=== PATIENT | male | born 1975 | race Native Hawaiian/Other Pacific Islander ===

== ENCOUNTER 2020-05-25 12:01 | Inpatient (IN) | payer SELFPAY ==
--- NOTE | 2020-05-25 12:19 | Emergency Department Report ---
Blank Doc - Documentation Documentation: 44-year-old male presents emerged department complaining of a 1 week history of shortness of breath and cough and progressively worsening symptoms since since the onset On examination increased work of breathing mild heart rate 140s satting 89% on room air at rest This initial assessment/diagnostic orders/clinical plan/treatment(s) is/are subject to change based on patients health status, clinical progression and re- assessment by fellow clinical providers in the ED. Further treatment and workup at subsequent clinical providers discretion. Patient/guardian urged not to elope from the ED as their condition may be serious if not clinically assessed and managed. Initial orders include: Covid, shortness of breath evaluation
[2020-05-25] MEDS ORDERED: SODIUM CHLORIDE 0.9% 1000 ML IV SOLN IV ONE (12:24)
--- NOTE | 2020-05-25 12:27 | Emergency Department Report ---
ED General Adult HPI - General Chief complaint: Dyspnea/Respdistress Stated complaint: + COVID REF BY DR. BANDA Time Seen by Provider: 05/25/20 12:27 Source: patient Mode of arrival: Ambulatory Limitations: No Limitations - History of Present Illness Initial comments: Patient is a 44-year-old diabetic male presents emergency department with shortness of breath associated with 2 to 3 days of nonproductive cough. Patient denies fever, denies sore throat, denies chest pain. Patient's tested positive for coronavirus 3 weeks ago, patient himself has not been tested. Sent from PMD for evaluation of tachycardia and hypoxia (89% RA) ED Review of Systems ROS: Stated complaint: + COVID REF BY DR. BANDA Other details as noted in HPI Comment: All other systems reviewed and negative ED Past Medical Hx - Past Medical History Previous Medical History?: Yes Hx Diabetes: Yes - Social History Smoking Status: Never Smoker Substance Use Type: None ED Physical Exam - General Limitations: No Limitations General appearance: alert, in no apparent distress - Head Head exam: Present: atraumatic, normocephalic - Eye Eye exam: Present: normal appearance - ENT ENT exam: Present: mucous membranes moist - Neck Neck exam: Present: normal inspection - Respiratory Respiratory exam: Present: respiratory distress, rhonchi - Cardiovascular Cardiovascular Exam: Present: normal rhythm, tachycardia - GI/Abdominal GI/Abdominal exam: Present: soft, normal bowel sounds - Rectal Rectal exam: Present: deferred - Extremities Exam Extremities exam: Present: normal inspection - Back Exam Back exam: Present: normal inspection - Neurological Exam Neurological exam: Present: alert, oriented X3 - Psychiatric Psychiatric exam: Present: normal affect, normal mood - Skin Skin exam: Present: warm, dry, intact, normal color. Absent: rash ED Course Vital Signs 05/25/20 05/25/20 05/25/20 12:42 12:58 13:07 Temperature 98.7 F Pulse Rate 120 H 122 H Respiratory 17 22 22 Rate Blood Pressure 127/84 [Left] O2 Sat by Pulse 93 91 Oximetry - Reevaluation(s) Reevaluation #1: 05/25/20 14:07 Patient treated with IV normal saline, IV Decadron, IV azithromycin, IV Rocephin. Patient treated with O2 nasal cannula for hypoxia 89% on room air. ED Medical Decision Making - Lab Data Result diagrams: 05/25/20 12:39 05/25/20 12:39 Labs 05/25/20 05/25/20 05/25/20 12:39 12:39 12:39 WBC 9.3 RBC 4.75 Hgb 14.9 Hct 42.5 MCV 89 MCH 31 MCHC 35 H RDW 12.6 L Plt Count 606 H Lymph % (Auto) 15.1 [place] % (Auto) 6.4 Eos % (Auto) 0.3 Baso % (Auto) 0.3 Lymph # (Auto) 1.4 [place] # (Auto) 0.6 Eos # (Auto) 0.0 Baso # (Auto) 0.0 Seg Neutrophils % 77.9 H Seg Neutrophils # 7.2 D-Dimer 230.82 Sodium 133 L Potassium 4.0 Chloride 97.8 L Carbon Dioxide 24 Anion Gap 15 BUN 10 Creatinine 0.5 L Estimated GFR > 60 BUN/Creatinine Ratio 20 Glucose 234 H Lactic Acid Calcium 9.3 Ferritin Total Bilirubin 0.30 AST 49 H ALT 52 Alkaline Phosphatase 115 Lactate Dehydrogenase C-Reactive Protein Total Protein 8.0 Albumin 3.6 L Albumin/Globulin Ratio 0.8 05/25/20 05/25/20 05/25/20 12:39 12:39 12:39 WBC RBC Hgb Hct MCV MCH MCHC RDW Plt Count Lymph % (Auto) [place] % (Auto) Eos % (Auto) Baso % (Auto) Lymph # (Auto) [place] # (Auto) Eos # (Auto) Baso # (Auto) Seg Neutrophils % Seg Neutrophils # D-Dimer Sodium Potassium Chloride Carbon Dioxide Anion Gap BUN Creatinine Estimated GFR BUN/Creatinine Ratio Glucose Lactic Acid 1.50 Calcium Ferritin 807.1 H Total Bilirubin AST ALT Alkaline Phosphatase Lactate Dehydrogenase 202 H C-Reactive Protein 4.20 H Total Protein Albumin Albumin/Globulin Ratio Vital Signs 05/25/20 05/25/20 05/25/20 12:42 12:58 13:07 Temperature 98.7 F Pulse Rate 120 H 122 H Respiratory 17 22 22 Rate Blood Pressure 127/84 [Left] O2 Sat by Pulse 93 91 Oximetry - EKG Data -: EKG Interpreted by Me (Sinus rhythm at 101, no ST-T changes, normal QRS) - Radiology Data Radiology results: report reviewed (CXR negative per radiology) Critical care attestation.: If time is entered above; I have spent that time in minutes in the direct care of this critically ill patient, excluding procedure time. ED Disposition Clinical Impression: Person under investigation for COVID-19, Hypoxia Disposition: DC OP ADMIT IP TO THIS HOSP Is pt being admited?: Yes Condition: Stable Referrals: PRIMARY CARE, [Primary Care Provider] - 3-5 Days
[2020-05-25 13:21] LABS: Basophils % (Auto) 0.3 % (0.0-1.8); Eosinophils % (Auto) 0.3 % (0.0-4.3); Hematocrit 42.5 % (35.5-45.6); Hemoglobin 14.9 gm/dl (11.8-15.2); Lymphocytes # (Auto) 1.4 K/mm3 (1.2-5.4); Lymphocytes % (Auto) 15.1 % (13.4-35.0); Mean Corpuscular HGB Conc 35 % (32-34); Mean Corpuscular Volume 89 fl (84-94); Monocytes # (Auto) 0.6 K/mm3 (0.0-0.8); Monocytes % (Auto) 6.4 % (0.0-7.3); Platelet Count 606 K/mm3 (140-440); Red Blood Count 4.75 M/mm3 (3.65-5.03); Red Cell Distribution Width 12.6 % (13.2-15.2)
[2020-05-25] MEDS ORDERED: AZITHROMYCIN/NS 500 MG/250 ML 500 MG/250 ML BAG IV ONE (13:32)
[2020-05-25] MEDS ORDERED: cefTRIAXone/NS 1 GM/50 ML 1 GM/50 ML BAG IV ONE (13:32)
[2020-05-25] MEDS ORDERED: SODIUM CHLORIDE 0.9% 500 ML 500 ML IV ONE (13:32)
[2020-05-25] MEDS ORDERED: dexAMETHasone 20 MG/5 ML VIAL IV ONE (13:32)
--- NOTE | 2020-05-25 13:36 | XRay Report ---
CHEST 1 VIEW INDICATION: cough, hypoxia, sob. COMPARISON: None FINDINGS: Support devices: None. Heart: Within normal limits. Lungs/Pleura: No acute air space or interstitial disease. Focal scarring or atelectasis in the lingul a is noted. No pleural effusion or pneumothorax. Additional findings: None. IMPRESSION: No acute findings. Signer Name: Rex Morales Jr, MD Signed: 05/25/2020 1:31 PM Workstation Name: [id number]
[2020-05-25 13:40] LABS: Alanine Aminotransferase 52 units/L (7-56); Albumin 3.6 g/dL (3.9-5); BUN/Creatinine Ratio 20; Blood Urea Nitrogen 10 mg/dL (9-20); Calcium 9.3 mg/dL (8.4-10.2); Hemolysis Index 0
[2020-05-25 13:41] LABS: C-Reactive Protein 4.2 mg/dL (0.00-1.30)
--- NOTE | 2020-05-25 14:07 | History and Physical Report ---
History of Present Illness Chief complaint: It is hard to breathe History of present illness: 44 YO Male with DM presents to ED for evaluation. Patient reports "it is hard for me to breathe". Patient states that he has experienced shortness of breath, dry cough, fatigue, decreased exercise tolerance, malaise, body aches, sore throat over the past 3 days with persistent symptoms over the same timeframe. Patient was seen and evaluated by his primary care physician and was found to have a pulse oximetry of 89% on room air. Patient transported to [facility] via private vehicle for further care and evaluation of the aforementioned symptoms. The patient was seen and evaluated in the emergency department. All lab and imaging studies reviewed. Patient found to have a pulse oximetry of 86% with exertion which is consistent with acute hypoxemic respiratory failure. Patient initiated on submental oxygen via nasal cannula with improvement in symptoms. Patient found to have chest x-ray consistent with pneumonia. Patient admitted to medical floor and initiated on coronavirus protocol as well as pneumonia protocol. Patient denies fever, chills, chest pain, palpitations, skin rash, recent ill contacts. Patient acknowledges known exposure to coronavirus infection. Patient was found to have coronavirus infection 3 weeks ago. No prior admission for review. No medication listed at time of admission for reconciliation. Past History Past Medical History: diabetes Past Surgical History: No surgical history, Other (Reviewed) Social history: , lives with family Family history: diabetes, hypertension Medications and Allergies Allergies Allergy/AdvReac Type Severity Reaction Status Date / Time No Known Allergies Allergy Unverified 05/25/20 14:38 Active Meds: Active Medications Azithromycin (Zithromax/Ns) 500 mg in 250 mls @ 250 mls/hr IV ONCE ONE; Protocol Stop: 05/25/20 14:31 Review of Systems Constitutional: fatigue, weakness, malaise, no fever, no chills, no sweats Ears, nose, mouth and throat: no ear pain, no ear discharge, no decreased hearing, no nose pain, no nasal congestion Cardiovascular: no chest pain, no orthopnea, no rapid/irregular heart beat, no edema, no syncope Respiratory: cough, cough with sputum, shortness of breath, no hemoptysis, no dyspnea on exertion Gastrointestinal: no nausea, no vomiting, no diarrhea, no constipation Genitourinary Male: no hematuria, no flank pain, no discharge, no urinary freq uency, no urinary hesitancy Rectal: no pain, no incontinence, no bleeding Musculoskeletal: no neck stiffness, no neck pain, no shooting arm pain, no arm numbness/tingling, no low back pain Integumentary: no rash, no pruritis, no redness, no sores, no wounds Neurological: no head injury, no transient paralysis, no parathesias, no numbness, no seizures, no syncope Psychiatric: no anxiety, no change in sleep habits, no sleep disturbances, no hypersomnia, no suicidal ideation Endocrine: no cold intolerance, no heat intolerance, no excessive thirst, no polydipsia, no nocturia, no excessive sweating Hematologic/Lymphatic: no easy bruising Allergic/Immunologic: no urticaria, no allergic rhinitis, no wheezing Exam - Constitutional Vitals: Temp Pulse Resp BP Pulse Ox 98.7 F 122 H 22 127/84 91 05/25/20 12:58 05/25/20 12:58 05/25/20 13:07 05/25/20 12:58 05/25/20 12:58 General appearance: Present: mild distress - EENT Eyes: Present: PERRL ENT: hearing intact, clear oral mucosa - Neck Neck: Present: supple, normal ROM - Respiratory Respiratory effort: normal Respiratory: bilateral: CTA - Cardiovascular Heart Sounds: Present: S1 & S2. Absent: rub, click - Extremities Extremities: pulses symmetrical, No edema Peripheral Pulses: within normal limits - Abdominal General gastrointestinal: Present: soft, non-tender, non-distended, normal bowel sounds Male genitourinary: Present: normal - Integumentary Integumentary: Present: clear, warm, dry - Musculoskeletal Musculoskeletal: gait normal, strength equal bilaterally - Psychiatric Psychiatric: appropriate mood/affect, intact judgment & insight - Neurologic Neurologic: CNII-XII intact, moves all extremities Results - Labs CBC & Chem 7: 05/25/20 12:39 05/25/20 12:39 Labs: Abnormal lab results 05/25/20 05/25/20 05/25/20 Range/Units 12:39 12:39 12:39 MCHC 35 H (32-34) % RDW 12.6 L (13.2-15.2) % Plt Count 606 H (140-440) K/mm3 Seg Neutrophils % 77.9 H (40.0-70.0) % Sodium 133 L (137-145) mmol/L Chloride 97.8 L (98-107) mmol/L Creatinine 0.5 L (0.8-1.3) mg/dL Glucose 234 H (75-100) mg/dL Ferritin (30.0-300.0) ng/mL AST 49 H (5-40) units/L Lactate Dehydrogenase 202 H (91-180) units/L C-Reactive Protein 4.20 H (0.00-1.30) mg/dL Albumin 3.6 L (3.9-5) g/dL 05/25/20 Range/Units 12:39 MCHC (32-34) % RDW (13.2-15.2) % Plt Count (140-440) K/mm3 Seg Neutrophils % (40.0-70.0) % Sodium (137-145) mmol/L Chloride (98-107) mmol/L Creatinine (0.8-1.3) mg/dL Glucose (75-100) mg/dL Ferritin 807.1 H (30.0-300.0) ng/mL AST (5-40) units/L Lactate Dehydrogenase (91-180) units/L C-Reactive Protein (0.00-1.30) mg/dL Albumin (3.9-5) g/dL Assessment and Plan - Patient Problems (1) Acute hypoxemic respiratory failure Current Visit: Yes Status: Acute Plan to address problem: Chest x-ray, supplemental oxygen, pulse oximetry, nebulizer therapy, pulmonary toilet. If patient is unable to maintain pulse oximetry on submental oxygen the patient will be transition to high flow submental oxygen. (2) Pneumonia Current Visit: Yes Status: Acute Plan to address problem: Pneumonia protocol: Chest x-ray, CBC, CMP, supplemental oxygen, pulse oximetry, IV antibiotic therapy, blood culture. (3) Suspected 2019 novel coronavirus infection Current Visit: Yes Status: Acute Plan to address problem: Coronavirus protocol: Contact precautions, isolation precautions, IV antibiotic therapy, IV steroid therapy, vitamin D3, zinc, vitamin C, supportive care, prone positioning while in bed. (4) Diabetes Current Visit: Yes Status: Acute Plan to address problem: Consistent carbohydrate diet, sliding scale insulin, Accu-Chek, hypoglycemia protocol. (5) DVT prophylaxis Current Visit: Yes Status: Acute Plan to address problem: SCD to bilateral lower extremities while in bed, prophylactic anticoagulation.
[2020-05-25] MEDS ORDERED: ALBUTEROL 2.5 MG/3 ML NEBU IH PRN (14:10)
[2020-05-25] MEDS ORDERED: ONDANSETRON 4 MG/2 ML INJ IV PRN (14:10)
[2020-05-25] MEDS ORDERED: ACETAMINOPHEN 325 MG TAB PO PRN (14:10)
[2020-05-25 15:54] LABS: Bilirubin,Urine NEG (Negative); Blood,Urine NEG (Negative); Color,Urine Yellow (Yellow); Hyaline Casts,Urine 1 /LPF; Mucus,Urine FEW /HPF; RBC,Urine < 1.0 /HPF (0.0-6.0); Urobilinogen,Urine < 2.0 mg/dL (<2.0)
[2020-05-25] MEDS: methylPREDNISolone Sod Succinate 40 MG/1 ML INJ IV SCH (22:51)
[2020-05-25] MEDS: ZINC SULFATE 220 MG CAP PO SCH (22:51)
[2020-05-25] MEDS: ASCORBIC ACID 500 MG TAB PO SCH (22:51)
[2020-05-25] MEDS: HEPARIN 5,000 UNIT/1 ML VIAL SUB-Q SCH (22:51)
[2020-05-26 05:08] LABS: Basophils % (Auto) 0.3 % (0.0-1.8); Hematocrit 43.6 % (35.5-45.6); Lymphocytes # (Auto) 0.7 K/mm3 (1.2-5.4); Lymphocytes % (Auto) 13.1 % (13.4-35.0); Mean Corpuscular HGB Conc 34 % (32-34); Mean Corpuscular Volume 90 fl (84-94); Monocytes # (Auto) 0.1 K/mm3 (0.0-0.8); Monocytes % (Auto) 2.3 % (0.0-7.3); Platelet Count 582 K/mm3 (140-440); Red Blood Count 4.87 M/mm3 (3.65-5.03); Red Cell Distribution Width 12.6 % (13.2-15.2)
[2020-05-26 05:09] LABS: Blood Urea Nitrogen 12 mg/dL (9-20); Calcium 9.1 mg/dL (8.4-10.2); Hemolysis Index 4
[2020-05-26 05:14] LABS: BUN/Creatinine Ratio 20
[2020-05-26] MEDS: methylPREDNISolone Sod Succinate 40 MG/1 ML INJ IV SCH (06:08)
[2020-05-26] MEDS ORDERED: AZITHROMYCIN 250 MG TAB PO SCH (10:00)
--- NOTE | 2020-05-26 10:35 | Progress Note ---
Assessment and Plan Assessment and plan: 44-year-old male with a history of diabetes presented to the hospital with chief complaint of difficulty breathing. He also notes dry cough, fatigue, decreased exercise tolerance, malaise, body aches and sore throat for about 3 days prior to presentation. He was seen by his primary medical doctor and was noted to have hypoxia. He was then sent to the hospital for further evaluation. In the ER, he was found to have acute hypoxic respiratory failure was admitted for evaluation. Chest x-ray showed no acute findings. COVID-19 test ordered. He mentioned that his spouse had coronavirus infection about 3 weeks ago. 05/26. Remains on oxygen supplementation. Awaiting COVID-19 test. Continue IV a ntibiotics dexamethasone Plan ---Acute hypoxic respiratory failure Continue oxygen supplementation COVID-19 test pending. Continue IV antibiotics Dexamethasone 6mg daily Diabetes mellitus Insulin regimen Monitor blood glucose closely DVT prophylaxis-Lovenox History Interval history: No fresh complaints Hospitalist Physical - Physical exam Narrative exam: VITAL SIGNS: Reviewed. GENERAL: Awake HEAD: No signs of head trauma. EYES: Pupils are equal. Extraocular motions intact. MOUTH: Oropharynx is normal. NECK: No adenopathy, no JVD. CHEST: Chest with diminished breath sounds bilaterally. No wheezes, rales, or rhonchi. CARDIAC: normal S1 and S2, without murmurs, gallops, or rubs. ABDOMEN: Soft, non tender and non distended. No rebound or guarding, and no masses palpated. Bowel Sounds normal. MUSCULOSKELETAL: No edema NEUROLOGIC EXAM: Alert and oriented x3. No focal neurologic deficits SKIN: No obvious lesions - Constitutional Vitals: Temp Pulse Resp BP Pulse Ox 97.8 F 87 16 112/73 93 05/26/20 05:21 05/26/20 05:21 05/26/20 05:21 05/26/20 05:21 05/26/20 05:21 Results - Labs CBC & Chem 7: 05/26/20 04:16 05/26/20 04:16 Labs: Laboratory Last Values WBC 5.2 K/mm3 (4.5-11.0) 05/26/20 04:16 RBC 4.87 M/mm3 (3.65-5.03) 05/26/20 04:16 Hgb 15.0 gm/dl (11.8-15.2) 05/26/20 04:16 Hct 43.6 % (35.5-45.6) 05/26/20 04:16 MCV 90 fl (84-94) 05/26/20 04:16 MCH 31 pg (28-32) 05/26/20 04:16 MCHC 34 % (32-34) 05/26/20 04:16 RDW 12.6 % (13.2-15.2) L 05/26/20 04:16 Plt Count 582 K/mm3 (140-440) H 05/26/20 04:16 Lymph % (Auto) 13.1 % (13.4-35.0) L 05/26/20 04:16 [place] % (Auto) 2.3 % (0.0-7.3) 05/26/20 04:16 Eos % (Auto) 0.0 % (0.0-4.3) 05/26/20 04:16 Baso % (Auto) 0.3 % (0.0-1.8) 05/26/20 04:16 Lymph # (Auto) 0.7 K/mm3 (1.2-5.4) L 05/26/20 04:16 [place] # (Auto) 0.1 K/mm3 (0.0-0.8) 05/26/20 04:16 Eos # (Auto) 0.0 K/mm3 (0.0-0.4) 05/26/20 04:16 Baso # (Auto) 0.0 K/mm3 (0.0-0.1) 05/26/20 04:16 Seg Neutrophils % 84.3 % (40.0-70.0) H 05/26/20 04:16 Seg Neutrophils # 4.4 K/mm3 (1.8-7.7) 05/26/20 04:16 D-Dimer 230.82 ng/mlDDU (0-234) 05/25/20 12:39 Sodium 136 mmol/L (137-145) L 05/26/20 04:16 Potassium 4.3 mmol/L (3.6-5.0) 05/26/20 04:16 Chloride 101.5 mmol/L (98-107) 05/26/20 04:16 Carbon Dioxide 22 mmol/L (22-30) 05/26/20 04:16 Anion Gap 17 mmol/L 05/26/20 04:16 BUN 12 mg/dL (9-20) 05/26/20 04:16 Creatinine 0.6 mg/dL (0.8-1.3) L 05/26/20 04:16 Estimated GFR > 60 ml/min 05/26/20 04:16 BUN/Creatinine Ratio 20 % 05/26/20 04:16 Glucose 276 mg/dL (75-100) H 05/26/20 04:16 Lactic Acid 1.40 mmol/L (0.7-2.0) 05/25/20 18:52 Calcium 9.1 mg/dL (8.4-10.2) 05/26/20 04:16 Ferritin 807.1 ng/mL (30.0-300.0) H 05/25/20 12:39 Total Bilirubin 0.30 mg/dL (0.1-1.2) 05/25/20 12:39 AST 49 units/L (5-40) H 05/25/20 12:39 ALT 52 units/L (7-56) 05/25/20 12:39 Alkaline Phosphatase 115 units/L (35-129) 05/25/20 12:39 Lactate Dehydrogenase 202 units/L (91-180) H 05/25/20 12:39 C-Reactive Protein 4.20 mg/dL (0.00-1.30) H 05/25/20 12:39 Total Protein 8.0 g/dL (6.3-8.2) 05/25/20 12:39 Albumin 3.6 g/dL (3.9-5) L 05/25/20 12:39 Albumin/Globulin Ratio 0.8 % 05/25/20 12:39 Procalcitonin < 0.05 ng/mL (<0.15) 05/25/20 12:39 Urine Color Yellow (Yellow) 05/25/20 15:40 Urine Turbidity Clear (Clear) 05/25/20 15:40 Urine pH 7.0 (5.0-7.0) 05/25/20 15:40 Ur Specific [place] 1.009 (1.003-1.030) 05/25/20 15:40 Urine Protein 30 mg/dl mg/dL (Negative) 05/25/20 15:40 Urine Glucose (UA) >=500 mg/dL (Negative) 05/25/20 15:40 Urine Ketones Neg mg/dL (Negative) 05/25/20 15:40 Urine Blood Neg (Negative) 05/25/20 15:40 Urine Nitrite Neg (Negative) 05/25/20 15:40 Urine Bilirubin Neg (Negative) 05/25/20 15:40 Urine Urobilinogen < 2.0 mg/dL (<2.0) 05/25/20 15:40 Ur Leukocyte Esterase Neg (Negative) 05/25/20 15:40 Urine WBC (Auto) 1.0 /HPF (0.0-6.0) 05/25/20 15:40 Urine RBC (Auto) < 1.0 /HPF (0.0-6.0) 05/25/20 15:40 Hyaline Casts 1 /LPF 05/25/20 15:40 Urine Mucus Few /HPF 05/25/20 15:40 Microbiology: Microbiology 05/25/20 12:39 Peripheral/Venous Blood Culture - Preliminary Culture in Progress 05/25/20 12:39 Peripheral/Venous Blood Culture - Preliminary Culture in Progress Galvan/IV: Voiding Method Toilet Active Medications - Current Medications Current Medications: Generic Name Dose Route Start Last Admin Trade Name Freq PRN Reason Stop Dose Admin Acetaminophen 650 mg 05/25/20 14:10 Acetaminophen 325 Mg Tab PO Q4H PRN Pain MILD(1-3)/Fever >100.5/FRANCISCO Albuterol 2.5 mg 05/25/20 14:10 Albuterol 2.5 Mg/3 Ml Nebu IH Q4H PRN Shortness Of Breath Ascorbic Acid 500 mg 05/25/20 22:00 05/25/20 22:51 Ascorbic Acid 500 Mg Tab PO 500 mg BID JOSSIE Administration Azithromycin 500 mg 05/26/20 10:00 Azithromycin 250 Mg Tab PO 05/29/20 10:01 QDAY [facility] Cholecalciferol 1,000 unit 05/26/20 10:00 Cholecalciferol (Vit D3) 1000 Unit (25 Mcg) Tab PO QDAY [facility] Dexamethasone 6 mg 05/26/20 10:00 Dexamethasone 4 Mg Tab PO 06/04/20 10:01 DAILY [facility] Heparin Sodium (Porcine) 5,000 unit 05/25/20 22:00 05/25/20 22:51 Heparin 5,000 Unit/1 Ml Vial SUB-Q 5,000 unit Q12HR JOSSIE Administration Ceftriaxone Sodium 2 gm in 100 mls @ 200 mls/hr 05/26/20 15:00 Rocephin/Ns 2 Gm/100 Ml IV Q24H JOSSIE Protocol Ondansetron HCl 4 mg 05/25/20 14:10 Ondansetron 4 Mg/2 Ml Inj IV Q8H PRN Nausea And Vomiting Sodium Chloride 10 ml 05/25/20 22:00 05/25/20 22:51 Sodium Chloride 0.9% 10 Ml Flush Syringe IV 10 ml BID JOSSIE Administration Sodium Chloride 10 ml 05/25/20 14:10 Sodium Chloride 0.9% 10 Ml Flush Syringe IV PRN PRN LINE FLUSH Zinc Sulfate 220 mg 05/25/20 22:00 05/25/20 22:51 Zinc Sulfate 220 Mg Cap PO 220 mg BID JOSSIE Administration
[2020-05-26] MEDS ORDERED: DEXTROSE 50% IN WATER (25GM) 50 ML SYRINGE IV PRN (10:41)
[2020-05-26] MEDS: ZINC SULFATE 220 MG CAP PO SCH ×2 (11:12→21:21)
[2020-05-26] MEDS: ASCORBIC ACID 500 MG TAB PO SCH ×2 (11:13→21:21)
[2020-05-26] MEDS: CHOLECALCIFEROL (VIT D3) 1000 UNIT (25 mcg) TAB PO SCH (11:13)
[2020-05-26] MEDS: DEXAMETHASONE 4 MG TAB PO SCH (11:13)
[2020-05-26] MEDS: HEPARIN 5,000 UNIT/1 ML VIAL SUB-Q SCH ×2 (11:13→21:22)
[2020-05-26] MEDS: INSULIN LISPRO 100 UNIT/ML SUB-Q SCH ×3 (13:27→21:20)
[2020-05-26] MEDS ORDERED: AZITHROMYCIN/NS 500 MG/250 ML 500 MG/250 ML BAG IV SCH (14:00)
[2020-05-26] MEDS ORDERED: INSULIN GLARGINE 100 UNITS/ML SUB-Q NR (15:00)
[2020-05-26] MEDS ORDERED: cefTRIAXone/NS 2 GM/100 ML 2 GM/100 ML BAG IV SCH (15:00)
--- NOTE | 2020-05-26 15:35 | Consultation ---
History of Present Illness - Reason for Consult Consult date: 05/26/20 COVID-19 Requesting physician: GINNA BEEBE - History of Present Illness The patient is a 44-year-old male with diabetes, admitted to the hospital due to cough, fatigue, shortness of breath, body aches, sore throat over the last 3 days. Upon evaluation in the ER, he was noted to have hypoxia. Patient had also been seen by his PCP. Patient tested positive for COVID-19. He is currently on 4 L oxygen by nasal cannula. Infectious diseases was consulted for additional evaluation. Labs showed normal WBC, platelets 606, D-dimer 230, ferritin 807, procalcitonin 0.05, CRP 4.2, LDH 202 Review of Systems: reviewed in the chart, unable to obtain, minimize risk of transmission Past History Past Medical History: diabetes Past Surgical History: No surgical history, Other (Reviewed) Social history: , lives with family Family history: diabetes, hypertension Medications and Allergies Allergies Allergy/AdvReac Type Severity Reaction Status Date / Time No Known Allergies Allergy Unverified 05/25/20 14:38 Home Medications Medication Instructions Recorded Confirmed Last Taken Type No Known Home Medications [No 05/25/20 05/25/20 Unknown History Reported Home Medications] Active Meds: Active Medications Acetaminophen (Acetaminophen 325 Mg Tab) 650 mg PO Q4H PRN PRN Reason: Pain MILD(1-3)/Fever >100.5/FRANCISCO Albuterol (Albuterol 2.5 Mg/3 Ml Nebu) 2.5 mg IH Q4H PRN PRN Reason: Shortness Of Breath Ascorbic Acid (Ascorbic Acid 500 Mg Tab) 500 mg PO BID [facility] Last Admin: 05/26/20 11:13 Dose: 500 mg Documented by: Azithromycin (Azithromycin 250 Mg Tab) 500 mg PO QDAY [facility] Stop: 05/29/20 10:01 Last Admin: 05/26/20 11:12 Dose: 500 mg Documented by: Cholecalciferol (Cholecalciferol (Vit D3) 1000 Unit (25 Mcg) Tab) 1,000 unit PO QDAY [facility] Last Admin: 05/26/20 11:13 Dose: 1,000 unit Documented by: Dexamethasone (Dexamethasone 4 Mg Tab) 6 mg PO DAILY [facility] Stop: 06/04/20 10:01 Last Admin: 05/26/20 11:13 Dose: 6 mg Documented by: Dextrose (Dextrose 50% In Water (25gm) 50 Ml Syringe) 50 ml IV Q30MIN PRN; Protocol PRN Reason: Hypoglycemia Heparin Sodium (Porcine) (Heparin 5,000 Unit/1 Ml Vial) 5,000 unit SUB-Q Q12HR [facility] Last Admin: 05/26/20 11:13 Dose: 5,000 unit Documented by: Ceftriaxone Sodium (Rocephin/Ns 2 Gm/100 Ml) 2 gm in 100 mls @ 200 mls/hr IV Q24H [facility]; Protocol Last Admin: 05/26/20 14:47 Dose: 200 mls/hr Documented by: Insulin Glargine (Insulin Glargine 100 Units/Ml) 10 units SUB-Q QHS [facility] Insulin Glargine (Insulin Glargine 100 Units/Ml) 6 units SUB-Q ONCE@1500 NR Stop: 05/26/20 17:00 Insulin Human Lispro (Insulin Lispro 100 Unit/Ml) 0 unit SUB-Q ACHS [facility]; Protocol Last Admin: 05/26/20 13:27 Dose: 8 unit Documented by: Ondansetron HCl (Ondansetron 4 Mg/2 Ml Inj) 4 mg IV Q8H PRN PRN Reason: Nausea And Vomiting Sodium Chloride (Sodium Chloride 0.9% 10 Ml Flush Syringe) 10 ml IV BID [facility] Last Admin: 05/26/20 11:13 Dose: 10 ml Documented by: Sodium Chloride (Sodium Chloride 0.9% 10 Ml Flush Syringe) 10 ml IV PRN PRN PRN Reason: LINE FLUSH Zinc Sulfate (Zinc Sulfate 220 Mg Cap) 220 mg PO BID [facility] Last Admin: 05/26/20 11:12 Dose: 220 mg Documented by: Physical Examination - Physical Exam Narrative exam: Physical Exam (reviewed in chart to minimize risk of transmission) Constitutional: deferred Head, Ears, Nose: deferred Eyes: deferred Neck: deferred Oral: deferred Cardiovascular: deferred Respiratory: deferred GI: deferred Musculoskeletal: deferred Skin: deferred Hem/Lymphatic: deferred Psych: deferred Neurological: deferred - Constitutional Vitals: Vital Signs Temp Pulse Resp BP Pulse Ox 97.8 F 96 H 18 127/84 93 05/26/20 11:31 05/26/20 11:31 05/26/20 11:31 05/26/20 11:31 05/26/20 11:31 Temperature -Last 24 Hours Temperature 97.8 F Temperature 97.8 F Temperature 97.7 F Temperature 97.5 F Temperature 98.2 F Temperature 97.7 F Results - Labs CBC & Chem 7: 05/26/20 04:16 05/26/20 04:16 Labs: Abnormal lab results 05/26/20 05/26/20 05/26/20 Range/Units 04:16 04:16 11:29 RDW 12.6 L (13.2-15.2) % Plt Count 582 H (140-440) K/mm3 Lymph % (Auto) 13.1 L (13.4-35.0) % Lymph # (Auto) 0.7 L (1.2-5.4) K/mm3 Seg Neutrophils % 84.3 H (40.0-70.0) % Sodium 136 L (137-145) mmol/L Creatinine 0.6 L (0.8-1.3) mg/dL Glucose 276 H (75-100) mg/dL POC Glucose 323 H (70-105) mg/dL Coronavirus (PCR) (Negative) 05/26/20 Range/Units Unknown RDW (13.2-15.2) % Plt Count (140-440) K/mm3 Lymph % (Auto) (13.4-35.0) % Lymph # (Auto) (1.2-5.4) K/mm3 Seg Neutrophils % (40.0-70.0) % Sodium (137-145) mmol/L Creatinine (0.8-1.3) mg/dL Glucose (75-100) mg/dL POC Glucose (70-105) mg/dL Coronavirus (PCR) Positive A (Negative) - Imaging and Cardiology Chest x-ray: report reviewed, image reviewed (no significant infiltrate) Assessment and Plan Cultures: SARS CoV2 PCR: Positive 05/25/2020 blood culture: No growth A/P: 44-year-old male with diabetes: #Bilateral pneumonia: Secondary to COVID-19. Elevated inflammatory markers. #Acute hypoxic respiratory failure: 4 L nasal cannula #Reactive thrombocytosis: Likely secondary to COVID-19 #Diabetes: Maintain glycemic control especially while on steroids Recs: -Continue IV/PO Dexamethasone 6 mg daily x 10 days -Due to COVID-19 and hypoxia, remdesivir ordered -Procalcitonin is low, antibiotics discontinued -prophylactic anticoagulation based on d-dimer per hospital protocol -trend ferritin, LDH, d-dimer, CRP every 2-3 days for risk stratification and to assess disease progression Lily Florence MD, FACP [facility] O: [phone] F: [phone]
[2020-05-26] MEDS ORDERED: REMDESIVIR 100 MG VIAL IV ONE (16:00)
[2020-05-26] MEDS ORDERED: REMDESIVIR 200 MG in SODIUM CHLORIDE 0.9% 250ML 250 ML IV ONE (16:00)
[2020-05-26] MEDS: SODIUM CHLORIDE 0.9% 50 ML IVPB IV SCH ×2 (17:48→21:21)
[2020-05-26] MEDS: BENZONATATE 100 MG CAP PO SCH ×2 (17:48→21:25)
[2020-05-26] MEDS: INSULIN GLARGINE 100 UNITS/ML SUB-Q SCH (21:20)
[2020-05-27] MEDS: BENZONATATE 100 MG CAP PO SCH ×3 (05:34→22:24)
[2020-05-27 06:42] LABS: Basophils % (Auto) 0.1 % (0.0-1.8); Hematocrit 41.4 % (35.5-45.6); Hemoglobin 13.9 gm/dl (11.8-15.2); Lymphocytes # (Auto) 1.6 K/mm3 (1.2-5.4); Lymphocytes % (Auto) 12.4 % (13.4-35.0); Mean Corpuscular HGB Conc 34 % (32-34); Mean Corpuscular Volume 90 fl (84-94); Monocytes # (Auto) 0.9 K/mm3 (0.0-0.8); Monocytes % (Auto) 7.5 % (0.0-7.3); Platelet Count 618 K/mm3 (140-440); Red Blood Count 4.62 M/mm3 (3.65-5.03); Red Cell Distribution Width 12.8 % (13.2-15.2)
[2020-05-27 06:48] LABS: Alanine Aminotransferase 41 units/L (7-56); Albumin 3.2 g/dL (3.9-5); Blood Urea Nitrogen 15 mg/dL (9-20); Calcium 8.7 mg/dL (8.4-10.2); Hemolysis Index 0
[2020-05-27 06:58] LABS: BUN/Creatinine Ratio 25
[2020-05-27] MEDS: INSULIN LISPRO 100 UNIT/ML SUB-Q SCH ×4 (08:33→22:23)
[2020-05-27] MEDS: CHOLECALCIFEROL (VIT D3) 1000 UNIT (25 mcg) TAB PO SCH (09:33)
[2020-05-27] MEDS: HEPARIN 5,000 UNIT/1 ML VIAL SUB-Q SCH ×2 (09:33→22:24)
[2020-05-27] MEDS: ASCORBIC ACID 500 MG TAB PO SCH ×2 (09:33→22:24)
[2020-05-27] MEDS: ZINC SULFATE 220 MG CAP PO SCH ×2 (09:33→22:24)
[2020-05-27] MEDS: DEXAMETHASONE 4 MG TAB PO SCH (09:33)
--- NOTE | 2020-05-27 09:54 | Progress Note ---
Assessment and Plan Assessment and plan: 44-year-old male with a history of diabetes presented to the hospital with chief complaint of difficulty breathing. He also notes dry cough, fatigue, decreased exercise tolerance, malaise, body aches and sore throat for about 3 days prior to presentation. He was seen by his primary medical doctor and was noted to have hypoxia. He was then sent to the hospital for further evaluation. In the ER, he was found to have acute hypoxic respiratory failure was admitted for evaluation. Chest x-ray showed no acute findings. COVID-19 test ordered. He mentioned that his spouse had coronavirus infection about 3 weeks ago. 05/26. Remains on oxygen supplementation. Awaiting COVID-19 test. Continue IV a ntibiotics dexamethasone 05/27. COVID- 19 test is positive. He is on dexamethasone and remdesivir. ID on board. Will get a walk test. Incentive spirometer Plan ---Acute hypoxic respiratory failure Continue oxygen supplementation COVID-19 test positive Continue IV antibiotics Dexamethasone 6mg daily ---COVID-19 Dexamethasone Remdesivir ID on board Trend inflammatory markers Diabetes mellitus Insulin regimen Monitor blood glucose closely DVT prophylaxis-Lovenox History Interval history: No fresh complaints COVID-19 test is positive Hospitalist Physical - Physical exam Narrative exam: VITAL SIGNS: Reviewed. GENERAL: Awake HEAD: No signs of head trauma. EYES: Pupils are equal. Extraocular motions intact. MOUTH: Oropharynx is normal. NECK: No adenopathy, no JVD. CHEST: Chest with diminished breath sounds bilaterally. No wheezes, rales, or rhonchi. CARDIAC: normal S1 and S2, without murmurs, gallops, or rubs. ABDOMEN: Soft, non tender and non distended. No rebound or guarding, and no masses palpated. Bowel Sounds normal. MUSCULOSKELETAL: No edema NEUROLOGIC EXAM: Alert and oriented x3. No focal neurologic deficits SKIN: No obvious lesions - Constitutional Vitals: Temp Pulse Resp BP Pulse Ox 97.6 F 63 17 106/72 96 05/27/20 04:16 05/27/20 04:16 05/27/20 04:16 05/27/20 04:16 05/27/20 04:16 Results - Labs CBC & Chem 7: 05/27/20 04:46 05/27/20 04:46 Labs: Laboratory Last Values WBC 12.5 K/mm3 (4.5-11.0) H 05/27/20 04:46 RBC 4.62 M/mm3 (3.65-5.03) 05/27/20 04:46 Hgb 13.9 gm/dl (11.8-15.2) 05/27/20 04:46 Hct 41.4 % (35.5-45.6) 05/27/20 04:46 MCV 90 fl (84-94) 05/27/20 04:46 MCH 30 pg (28-32) 05/27/20 04:46 MCHC 34 % (32-34) 05/27/20 04:46 RDW 12.8 % (13.2-15.2) L 05/27/20 04:46 Plt Count 618 K/mm3 (140-440) H 05/27/20 04:46 Lymph % (Auto) 12.4 % (13.4-35.0) L 05/27/20 04:46 [place] % (Auto) 7.5 % (0.0-7.3) H 05/27/20 04:46 Eos % (Auto) 0.0 % (0.0-4.3) 05/27/20 04:46 Baso % (Auto) 0.1 % (0.0-1.8) 05/27/20 04:46 Lymph # (Auto) 1.6 K/mm3 (1.2-5.4) 05/27/20 04:46 [place] # (Auto) 0.9 K/mm3 (0.0-0.8) H 05/27/20 04:46 Eos # (Auto) 0.0 K/mm3 (0.0-0.4) 05/27/20 04:46 Baso # (Auto) 0.0 K/mm3 (0.0-0.1) 05/27/20 04:46 Seg Neutrophils % 80.0 % (40.0-70.0) H 05/27/20 04:46 Seg Neutrophils # 10.0 K/mm3 (1.8-7.7) H 05/27/20 04:46 D-Dimer 230.82 ng/mlDDU (0-234) 05/25/20 12:39 Sodium 137 mmol/L (137-145) 05/27/20 04:46 Potassium 3.6 mmol/L (3.6-5.0) 05/27/20 04:46 Chloride 103.8 mmol/L (98-107) 05/27/20 04:46 Carbon Dioxide 26 mmol/L (22-30) 05/27/20 04:46 Anion Gap 11 mmol/L 05/27/20 04:46 BUN 15 mg/dL (9-20) 05/27/20 04:46 Creatinine 0.6 mg/dL (0.8-1.3) L 05/27/20 04:46 Estimated GFR > 60 ml/min 05/27/20 04:46 BUN/Creatinine Ratio 25 % 05/27/20 04:46 Glucose 175 mg/dL (75-100) H 05/27/20 04:46 POC Glucose 159 mg/dL (70-105) H 05/27/20 07:43 Hemoglobin A1c 11.6 % (4-6) H 05/27/20 04:46 Lactic Acid 1.40 mmol/L (0.7-2.0) 05/25/20 18:52 Calcium 8.7 mg/dL (8.4-10.2) 05/27/20 04:46 Ferritin 807.1 ng/mL (30.0-300.0) H 05/25/20 12:39 Total Bilirubin 0.30 mg/dL (0.1-1.2) 05/27/20 04:46 AST 21 units/L (5-40) 05/27/20 04:46 ALT 41 units/L (7-56) 05/27/20 04:46 Alkaline Phosphatase 92 units/L (35-129) 05/27/20 04:46 Lactate Dehydrogenase 202 units/L (91-180) H 05/25/20 12:39 C-Reactive Protein 4.20 mg/dL (0.00-1.30) H 05/25/20 12:39 Total Protein 6.8 g/dL (6.3-8.2) 05/27/20 04:46 Albumin 3.2 g/dL (3.9-5) L 05/27/20 04:46 Albumin/Globulin Ratio 0.9 % 05/27/20 04:46 Procalcitonin < 0.05 ng/mL (<0.15) 05/25/20 12:39 Urine Color Yellow (Yellow) 05/25/20 15:40 Urine Turbidity Clear (Clear) 05/25/20 15:40 Urine pH 7.0 (5.0-7.0) 05/25/20 15:40 Ur Specific [place] 1.009 (1.003-1.030) 05/25/20 15:40 Urine Protein 30 mg/dl mg/dL (Negative) 05/25/20 15:40 Urine Glucose (UA) >=500 mg/dL (Negative) 05/25/20 15:40 Urine Ketones Neg mg/dL (Negative) 05/25/20 15:40 Urine Blood Neg (Negative) 05/25/20 15:40 Urine Nitrite Neg (Negative) 05/25/20 15:40 Urine Bilirubin Neg (Negative) 05/25/20 15:40 Urine Urobilinogen < 2.0 mg/dL (<2.0) 05/25/20 15:40 Ur Leukocyte Esterase Neg (Negative) 05/25/20 15:40 Urine WBC (Auto) 1.0 /HPF (0.0-6.0) 05/25/20 15:40 Urine RBC (Auto) < 1.0 /HPF (0.0-6.0) 05/25/20 15:40 Hyaline Casts 1 /LPF 05/25/20 15:40 Urine Mucus Few /HPF 05/25/20 15:40 Coronavirus (PCR) Positive (Negative) A 05/26/20 Unknown Microbiology: Microbiology 05/25/20 12:39 Peripheral/Venous Blood Culture - Preliminary NO GROWTH AFTER 24 HOURS 05/25/20 12:39 Peripheral/Venous Blood Culture - Preliminary NO GROWTH AFTER 24 HOURS Galvan/IV: Voiding Method Toilet Active Medications - Current Medications Current Medications: Generic Name Dose Route Start Last Admin Trade Name Freq PRN Reason Stop Dose Admin Acetaminophen 650 mg 05/25/20 14:10 Acetaminophen 325 Mg Tab PO Q4H PRN Pain MILD(1-3)/Fever >100.5/FRANCISCO Albuterol 2.5 mg 05/25/20 14:10 Albuterol 2.5 Mg/3 Ml Nebu IH Q4H PRN Shortness Of Breath Ascorbic Acid 500 mg 05/25/20 22:00 05/27/20 09:33 Ascorbic Acid 500 Mg Tab PO 500 mg BID JOSSIE Administration Benzonatate 100 mg 05/26/20 17:00 05/27/20 05:34 Benzonatate 100 Mg Cap PO 100 mg Q8HR JOSSIE Administration Cholecalciferol 1,000 unit 05/26/20 10:00 05/27/20 09:33 Cholecalciferol (Vit D3) 1000 Unit (25 Mcg) Tab PO 1,000 unit QDAY JOSSIE Administration Dexamethasone 6 mg 05/26/20 10:00 05/27/20 09:33 Dexamethasone 4 Mg Tab PO 06/04/20 10:01 6 mg DAILY JOSSIE Administration Dextrose 50 ml 05/26/20 10:41 Dextrose 50% In Water (25gm) 50 Ml Syringe IV Q30MIN PRN Hypoglycemia Protocol Heparin Sodium (Porcine) 5,000 unit 05/25/20 22:00 05/27/20 09:33 Heparin 5,000 Unit/1 Ml Vial SUB-Q 5,000 unit Q12HR JOSSIE Administration REMDESIVIR 100 mg/ Sodium 250 mls @ 500 mls/hr 05/27/20 21:00 Chloride IV 05/30/20 21:29 Q24HR@2100 [facility] Insulin Glargine 10 units 05/26/20 22:00 05/26/20 21:20 Insulin Glargine 100 Units/Ml SUB-Q 10 units QHS JOSSIE Administration Insulin Human Lispro 0 unit 05/26/20 11:30 05/27/20 08:33 Insulin Lispro 100 Unit/Ml SUB-Q 3 unit ACHS JOSSIE Administration Protocol Ondansetron HCl 4 mg 05/25/20 14:10 Ondansetron 4 Mg/2 Ml Inj IV Q8H PRN Nausea And Vomiting Sodium Chloride 10 ml 05/25/20 22:00 05/27/20 09:34 Sodium Chloride 0.9% 10 Ml Flush Syringe IV 10 ml BID JOSSIE Administration Sodium Chloride 10 ml 05/25/20 14:10 Sodium Chloride 0.9% 10 Ml Flush Syringe IV PRN PRN LINE FLUSH Sodium Chloride 50 ml 05/27/20 21:00 Sodium Chloride 0.9% 50 Ml Ivpb IV 05/30/20 21:01 Q24HR@2100 JOSSIE Zinc Sulfate 220 mg 05/25/20 22:00 05/27/20 09:33 Zinc Sulfate 220 Mg Cap PO 220 mg BID JOSSIE Administration Nutrition/Malnutrition Assess - Dietary Evaluation Nutrition/Malnutrition Findings: Nutrition Notes Start: 05/26/20 12:21 Freq: Status: Active Protocol: Document 05/26/20 12:21 [email or web address] (Rec: 05/26/20 12:32 [email or web address] [id number]) Co-Sign 05/26/20 12:21 MK Nutrition Notes 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 Pt has a dorie score of 21. Not able to reach pt by phone x2. Spoke with RN, Pt consuming 75% of meals. Burn Absent Trauma Absent GI Symptoms None Food Allergy No Skin Integrity/Comment Dorie Score:21 Current % PO Good (75-100%) Minimum of two criteria No Is patient on ventilator? No Is Patient Ambulatory and/or Out of Bed Yes REE[facility]-amb[facility]/OOB) [ [id number] [id number]] Calculation Used for Recommendations [facility] Inter[facility] Change Diet Order: Consitent Carbohydrate Diet Anticipated Discharge Needs: Consistent Carbohydrate diet Revisit per MD consult or patient Sign Off request:
--- NOTE | 2020-05-27 13:52 | Progress Note ---
Assessment and Plan Cultures: SARS CoV2 PCR: Positive 05/25/2020 blood culture: No growth A/P: 44-year-old male with diabetes: #Bilateral pneumonia: Secondary to COVID-19. Elevated inflammatory markers. #Acute hypoxic respiratory failure: was on 4 L nasal cannula, improved #Reactive thrombocytosis: Likely secondary to COVID-19 #Diabetes: Maintain glycemic control especially while on steroids Recs: -Continue IV/PO Dexamethasone 6 mg daily x 10 days -Remdesivir, D2 -maintain glycemic control, especially while on steroids -cleared walk test, does not need to stay inpatient to complete remdesivir cour se -consider PO aspirin 81 mg x 1 month due to thrombocytosis and COVID Lily Florence MD, FACP [facility] O: [phone] F: [phone] Subjective Date of service: 05/27/20 Interval history: No fever. Got walk test, not hypoxic. Objective - Exam Narrative Exam: Physical Exam (reviewed in chart to minimize risk of transmission) Constitutional: deferred Head, Ears, Nose: deferred Eyes: deferred Neck: deferred Oral: deferred Cardiovascular: deferred Respiratory: deferred GI: deferred Musculoskeletal: deferred Skin: deferred Hem/Lymphatic: deferred Psych: deferred Neurological: deferred - Constitutional Vitals: Vital Signs Temp Pulse Resp BP Pulse Ox 97.6 F 69 18 106/70 95 05/27/20 10:57 05/27/20 10:57 05/27/20 10:57 05/27/20 10:57 05/27/20 10:57 Temperature -Last 24 Hours Temperature 97.6 F Temperature 97.6 F Temperature 97.1 F Temperature 97.8 F - Labs CBC & Chem 7: 05/27/20 04:46 05/27/20 04:46 Labs: Abnormal lab results 05/26/20 05/26/20 05/26/20 Range/Units 16:48 21:09 Unknown WBC (4.5-11.0) K/mm3 RDW (13.2-15.2) % Plt Count (140-440) K/mm3 Lymph % (Auto) (13.4-35.0) % [place] % (Auto) (0.0-7.3) % [place] # (Auto) (0.0-0.8) K/mm3 Seg Neutrophils % (40.0-70.0) % Seg Neutrophils # (1.8-7.7) K/mm3 Creatinine (0.8-1.3) mg/dL Glucose (75-100) mg/dL POC Glucose 263 H 329 H (70-105) mg/dL Hemoglobin A1c (4-6) % Albumin (3.9-5) g/dL Coronavirus (PCR) Positive A (Negative) 05/27/20 05/27/20 05/27/20 Range/Units 04:46 04:46 04:46 WBC 12.5 H (4.5-11.0) K/mm3 RDW 12.8 L (13.2-15.2) % Plt Count 618 H (140-440) K/mm3 Lymph % (Auto) 12.4 L (13.4-35.0) % [place] % (Auto) 7.5 H (0.0-7.3) % [place] # (Auto) 0.9 H (0.0-0.8) K/mm3 Seg Neutrophils % 80.0 H (40.0-70.0) % Seg Neutrophils # 10.0 H (1.8-7.7) K/mm3 Creatinine 0.6 L (0.8-1.3) mg/dL Glucose 175 H (75-100) mg/dL POC Glucose (70-105) mg/dL Hemoglobin A1c 11.6 H (4-6) % Albumin 3.2 L (3.9-5) g/dL Coronavirus (PCR) (Negative) 05/27/20 Range/Units 07:43 WBC (4.5-11.0) K/mm3 RDW (13.2-15.2) % Plt Count (140-440) K/mm3 Lymph % (Auto) (13.4-35.0) % [place] % (Auto) (0.0-7.3) % [place] # (Auto) (0.0-0.8) K/mm3 Seg Neutrophils % (40.0-70.0) % Seg Neutrophils # (1.8-7.7) K/mm3 Creatinine (0.8-1.3) mg/dL Glucose (75-100) mg/dL POC Glucose 159 H (70-105) mg/dL Hemoglobin A1c (4-6) % Albumin (3.9-5) g/dL Coronavirus (PCR) (Negative)
[2020-05-27] MEDS ORDERED: REMDESIVIR 100 MG in SODIUM CHLORIDE 0.9% 250ML 250 ML IV SCH (21:00)
[2020-05-27] MEDS ORDERED: SODIUM CHLORIDE 0.9% 50 ML IVPB IV SCH (21:00)
[2020-05-27] MEDS: INSULIN GLARGINE 100 UNITS/ML SUB-Q SCH (22:24)
[2020-05-28] MEDS: BENZONATATE 100 MG CAP PO SCH (05:34)
[2020-05-28 06:33] LABS: Basophils % (Auto) 0.1 % (0.0-1.8); Eosinophils % (Auto) 0.1 % (0.0-4.3); Hematocrit 41.5 % (35.5-45.6); Hemoglobin 14.3 gm/dl (11.8-15.2); Lymphocytes # (Auto) 1.6 K/mm3 (1.2-5.4); Lymphocytes % (Auto) 17.2 % (13.4-35.0); Mean Corpuscular HGB Conc 35 % (32-34); Mean Corpuscular Volume 90 fl (84-94); Monocytes # (Auto) 0.7 K/mm3 (0.0-0.8); Platelet Count 608 K/mm3 (140-440); Red Blood Count 4.61 M/mm3 (3.65-5.03); Red Cell Distribution Width 12.8 % (13.2-15.2)
[2020-05-28 07:12] LABS: Alanine Aminotransferase 48 units/L (7-56); Albumin 3.2 g/dL (3.9-5); Blood Urea Nitrogen 14 mg/dL (9-20); Calcium 8.5 mg/dL (8.4-10.2); Hemolysis Index 9
[2020-05-28 07:44] LABS: BUN/Creatinine Ratio 28
[2020-05-28] MEDS: INSULIN LISPRO 100 UNIT/ML SUB-Q SCH ×2 (08:10→12:21)
[2020-05-28] MEDS: DEXAMETHASONE 4 MG TAB PO SCH (09:00)
[2020-05-28] MEDS: ZINC SULFATE 220 MG CAP PO SCH (09:00)
[2020-05-28] MEDS: HEPARIN 5,000 UNIT/1 ML VIAL SUB-Q SCH (09:00)
[2020-05-28] MEDS: ASCORBIC ACID 500 MG TAB PO SCH (09:00)
[2020-05-28] MEDS: CHOLECALCIFEROL (VIT D3) 1000 UNIT (25 mcg) TAB PO SCH (09:00)
--- NOTE | 2020-05-28 10:11 | Discharge Summary ---
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 He also notes dry cough, fatigue, decreased exercise tolerance, malaise, body aches and sore throat for about 3 days prior to presentation. He was seen by his primary medical doctor and was noted to have hypoxia. He was then sent to the hospital for further evaluation. In the ER, he was found to have acute hypoxic respiratory failure was admitted for evaluation. Chest x-ray showed no acute findings. COVID-19 test ordered. He mentioned that his spouse had coronavirus infection about 3 weeks ago. 05/26. Remains on oxygen supplementation. Awaiting COVID-19 test. Continue IV antibiotics dexamethasone 05/27. COVID- 19 test is positive. He is on dexamethasone and remdesivir. ID on board. Will get a walk test. Incentive spirometer 05/28. Patient had a walk test and his satruation remained above 90%. He feels great and will be discharged home today. His hemoglobin A1c is 11.6. He will be started on metformin and follow up with PCP. Disposition: - TO HOME OR SELFCARE Time spent for discharge: 35 mins - Discharge Diagnoses (1) Pneumonia due to COVID-19 virus Status: Acute (2) Acute hypoxemic respiratory failure Status: Acute Core Measure Documentation - Palliative Care Palliative Care/ Comfort Measures: Not Applicable - Core Measures Any of the following diagnoses?: none Exam - Physical Exam Narrative exam: VITAL SIGNS: Reviewed. GENERAL: Awake HEAD: No signs of head trauma. EYES: Pupils are equal. Extraocular motions intact. MOUTH: Oropharynx is normal. NECK: No adenopathy, no JVD. CHEST: Chest with diminished breath sounds bilaterally. No wheezes, rales, or rhonchi. CARDIAC: normal S1 and S2, without murmurs, gallops, or rubs. ABDOMEN: Soft, non tender and non distended. No rebound or guarding, and no masses palpated. Bowel Sounds normal. MUSCULOSKELETAL: No edema NEUROLOGIC EXAM: Alert and oriented x3. No focal neurologic deficits SKIN: No obvious lesions - Constitutional Vitals: Temp Pulse Resp BP Pulse Ox 97.3 F L 69 17 103/75 95 05/28/20 05:55 05/28/20 05:55 05/28/20 08:18 05/28/20 05:55 05/28/20 05:55 Plan Additional Instructions: Continue medications. Follow up with PCP in 2 weeks after self quarantine. Follow up with: PRIMARY CARE, [Primary Care Provider] - 3-5 Days Prescriptions: dexAMETHasone [Dexamethasone] 6 mg PO DAILY #8 tablet metFORMIN [Glucophage] 850 mg PO BID #60 tablet Benzonatate [Tessalon Perles] 100 mg PO Q8HR #15 capsule Ascorbic Acid [Vitamin C] 500 mg PO BID #14 tablet Zinc Sulfate 220 mg PO DAILY #7 capsule
[2020-05-28 15:13] VITALS: BP 106/68
== END 2020-05-28 15:25 | disposition home or self-care (01) | DRG 177 ==
LOC: ED 12:01 → 3A 14:10
PROVIDERS: ADMIT Internal Medicine; ATTEND Internal Medicine
PROC: XW033E5 Introduction of Remdesivir Anti-infective into Peripheral Vein, Percutaneous Approach, New Technology Group 5 (ICD-10-PCS; principal; 2020-05-27)
DX: U07.1 COVID-19 (principal); J96.01 Acute respiratory failure with hypoxia; J12.82 Pneumonia due to coronavirus disease 2019; E11.9 Type 2 diabetes mellitus without complications; Z83.3 Family history of diabetes mellitus; Z82.49 Family history of ischemic heart disease and other diseases of the circulatory system
CPT/HCPCS: 36415; 71045; 80048; 80053; 81001; 82140; 82728; 82962; 83036; 83615; 84145; 85025; 85379; 86140; 87040; 93005; 96361; 96365; 96368; 96375; G0378; J0456; J0696; J1100; J1644; J1815; J2920; J7030; J8540; U0003